=== PATIENT | male | born 2005 | race Caucasian/White ===

== ENCOUNTER 2025-08-20 20:49 | Emergency (ER) | payer BC, SELFPAY ==
[2025-08-20 20:54] VITALS: BP 140/89; PULSE 82; RESP 18; TEMP 36.9; O2SAT 100
--- NOTE | 2025-08-21 01:00 | ED.WOUNDLAC ---
HPI - Wound/Laceration General Chief Complaint: Wound/Laceration Stated Complaint: left thumb lac Time Seen by Provider: 08/21/25 00:06 Source: patient Mode of arrival: ambulatory Limitations: no limitations History of Present Illness HPI narrative: This is a 20 year old male that presents to the ER for laceration to left thumb. Reports accidentally cut it with a knife. Reports bleeding and pain to the area. Related Data Home Medications ?Medication ?Instructions ?Recorded ?Confirmed ?Last Taken ?Type fexofenadine 180 mg tablet 180 mg PO DAILY 11/10/23 11/10/23 Unknown History (Johanne Allergy) fluticasone propionate 50 1 spray intranasal BID 11/10/23 11/10/23 Unknown History mcg/actuation nasal spray,suspension (Flonase Allergy Relief) Allergies Allergy/AdvReac Type Severity Reaction Status Date / Time No Known Allergies Allergy Verified 08/20/25 20:54 Review of Systems Review of Systems: All systems reviewed & are unremarkable except as noted in HPI and below PMFSH Past Medical History Medical History Seasonal allergies Family History Family History Mother Asthma Thyroid disorder Social History Social History Social History: Single Smoking status: Never smoker Second hand tobacco smoke exposure: No Alcohol intake: never Substance use: never Substance use type: does not use Do You Feel Safe in your Home?: Yes Lack of Transportation: No Lack of Food: Never True Current Housing: I Have Housing Concerned About Future Housing: No Difficulty Paying Gas/Electric Bills: No Difficulty Paying for Meds: No Currently Unemployed: No Education: Don't Know Difficulty w/ Childcare or Family Care: No Living arrangements: with family Occupation/Education: student Additional occupation/education comments: Homeschooled Gender identity (if verbalized by the patient): Male Sexual Orientation (if Verbalized by the Patient): Straight or Heterosexual Exam Narrative: GENERAL: Well-appearing, well-nourished, and in no acute distress. HEAD: Normocephalic, atraumatic. EYES: EOMI. EXTREMITIES: Normal range of motion. No edema. Left thumb with flap laceration to the tip of the finger SKIN: Warm, dry, no rash. NEURO: No focal deficits. Alert and oriented x3. PSYCH: Normal mood and affect Course Vital Signs Vital signs: Vital Signs Temperature 98.4 F 08/20/25 20:54 Pulse Rate 82 08/20/25 20:54 Respiratory Rate 18 08/20/25 20:54 Blood Pressure 140/89 08/20/25 20:54 Pulse Oximetry 100 08/20/25 20:54 Oxygen Delivery Room Air 08/20/25 20:54 Temperature 98.4 F 08/20/25 20:54 Pulse Rate 82 08/20/25 20:54 Respiratory Rate 18 08/20/25 20:54 Blood Pressure 140/89 08/20/25 20:54 Pulse Oximetry 100 08/20/25 20:54 Oxygen Delivery Room Air 08/20/25 20:54 Procedures Laceration Laceration 1: Date: 08/21/25 Time: 02:05 Site: hand Side (If applicable): left Size (cm): 1.5 Description: flap Depth: simple, single layer Local Anesthetic: lidocaine 1% Amount of anesthesia used (mL): 2 Pre-repair: wound explored and irrigated ====== Skin Level ====== Skin layer closed with: nylon Size (cm): 4-0 Number of sutures: 2 Technique: simple, interrupted ====== Subcutaneous Layer ====== ====== Muscle Layer ====== ====== Tendon Layer ====== MDM - Wound/Laceration MDM Narrative Medical decision making narrative: Patient presents the emergency department for laceration to the left thumb. Wound was irrigated and closed with sutures. Patient updated tetanus vaccination. Educated on further wound care. He is to follow up primary provider. He was given warnings to return to the ER Differential Diagnosis Differential diagnosis: Likely laceration, abrasion and avulsion of skin Critical Care Time Critical Care Time Critical Care Time: No Discharge Plan Discharge Clinical Impression: Laceration Patient Disposition: Home Condition: Stable Instructions: Care For Your Stitches (ED), Laceration (ED) Additional Instructions: Return to the emergency department if you experience fever, redness or swelling of your wound, abnormal drainage from your wound, or any other symptoms that are concerning to you. Apply antibiotic ointment daily. Do not soak the wound. Clean with mild soap and water daily Follow-up with your primary care doctor for suture removal in 10-14 days. Patient Language: South [place]ese Prescriptions: No Action fexofenadine [Johanne Allergy] 180 mg tablet 180 mg PO DAILY fluticasone propionate [Flonase Allergy Relief] 50 mcg/actuation spray,suspension 1 spray intranasal BID Rx Instructions: administer into each nostril azelastine 137 mcg (0.1 %) aerosol,spray 137 mcg intranasal Q12H Qty: 30 3RF Rx Instructions: administer into each nostril Follow-up/Referrals: Ge Veloz MD [Primary Care Provider, Family Practice]
[2025-08-21] MEDS: IBUPROFEN 600 MG TABLET PO (02:15)
[2025-08-21] MEDS: CELLULOSE OXIDIZED 2 x 14 INCH 1 PKT XX (02:15)
[2025-08-21] MEDS: TETANUS,DIPHTHERIA,AC PERTUSSIS ADULT (0.5 ML) BOOSTRIX IM (02:16)
[2025-08-21] MEDS: LIDOCAINE 1% LOCAL INJ 10 ML VIAL INFILTRATE (02:16)
== END 2025-08-21 02:20 | disposition home or self-care (01) ==
PROVIDERS: Emergency Provider Physician Assistant; PCP Family Medicine
DX: S61.012A Laceration without foreign body of left thumb without damage to nail, initial encounter (principal); Z23 Encounter for immunization; W26.0XXA Contact with knife, initial encounter
CPT/HCPCS: 12001; 90471; 90715; 99282; A9270; J2003

== ENCOUNTER 2025-09-24 10:41 | Outpatient (CLI) | payer BC, SELFPAY ==
--- OUTSIDE RECORDS SUMMARY | 2024-10-10 12:30 | XMS_ITS ---
Author Organization [facility] [place] ([address]) Address [address] [place] [address] Care Team Providers Care Solar Tech Name Role Phone Dr. Lian Larson Primary Care Provider Un available Hazel Camejo Unavailable [phone] REASON FOR VISIT ARC follow-up Encounters Encounter Location Date Provider Diagnosis [facility] [address] [place] [address] 10/10/2024 Hazel Camejo Plan Of Treatment No Information Progress Notes * Raghu BETANCOUTRDOB:2004 (20 yo M)Acc No.[id number]:10/10/2024 Progress Notes Patient: Raghu CAMARILLO Provider: NATHALIE Quintana :2005 A ge:19 Y S ex:Male Date:10/10/2024 Address:[address] [place], [place] [phone] Pcp:Dr. Lian Larson Subjective: * Chief Complaints: * 1 . ARC follow-up. * Medical History: Objective: * Vitals: Assessment: Plan: * Treatment: * Billing Information: * Visit Code: * Procedure Codes: * Electronic signature of NATHALIE Hernandez on 09/24/2025 at 12:23 PM CDT Sign off status: Pending * Provider: NATHALIE Quintana Date: 12/10/2023 Generated for Jasen cunningham/Wilder/Sohail on: 1 12:23 PM CDT
[2025-09-24 12:19] LABS: Hematocrit 39.2 % (42.0-52.0); Hemoglobin 13.0 g/dL (14.0-18.0); Immature Granulocyte Percent A 0.8 % (0-0.5); Lymphocytes Absolute Auto 0.77 K/mm3 (0.9-3.2); Mean Corpuscular HGB Conc 33.2 g/dl (32-36); Mean Corpuscular Hemoglobin 28.3 pg (26-34); Mean Corpuscular Volume 85.4 fl (80-100); Nucleated Red Blood Cells Absolute Auto 0.000 K/mm3 (0.0-0.012); Nucleated Red Blood Cells Perc 0.0 % (0.0-0.2); Platelet Count Result 296 k/mm3 (150-375); Red Blood Count 4.59 M/mm3 (4.6-6.20); White Blood Count 4.0 K/mm3 (4.5-10.0)
--- OUTSIDE RECORDS SUMMARY | 2025-09-24 12:24 | XMS_ITS | Clinical Summary ---
Author Organization [facility] Care Team Providers Care Retail Consultant Name Role Phone Unavailable Primary Care Provider Unavailabl e Social History Tobacco Use Types Packs/Day Years Used Date Smoking Tobacco: Never Assessed Sex and Gender Information Value Date Recorded Sex Assigned at Not on file Legal Sex Male 11:22 AM RADIO INTERFERENCE EXPERT Gender Identity Not on file Sexual Orientation Not on file Plan of Treatment Health Maintenance Due Date Last Done Comments Hepatitis C Virus (HCV) Screening 2003 TdaP Immunization 2003 Human Papillomavirus (HPV) Immunization (1 - Male 3-dose series) 2018 Meningococcal B Immunization (1 of 2 - Standard) 2019 Hepatitis B Immunization (1 of 3 - 19+ 3-dose series) 2022 Influenza Immunization (#1) 2025 SARS-COV-2 Immunization ( - season) 2025 Respiratory Syncytial Virus (RSV) Immunization (Adult) (1 - 1-dose 75+ series) 2078 Meningococcal Immunization (ACWY) Aged Out No longer eligible based on patient's age to complete this topic Pneumococcal Immunization Combined Aged Out No longer eligible based on patient's age to complete this topic Rotavirus Immunization Aged Out No lo nger eligible based on patient's age to complete this topic
--- OUTSIDE RECORDS SUMMARY | 2025-09-24 12:24 | XMS_ITS | Patient Health Record ---
Author Organization [facility] [facility] [place] ([address]) Address [address] [place] [address] Care Team Providers Care Commercial Sales Manager Name Role Phone Dr. Lian Larson Primary Care Provider Un available Hazel Camejo Unavailable [phone] Allergies No Known Allergies Reason For Referral No Information Medications Medication SIG (Take, Route, Frequency, Duration) Notes Start Date End Date Status FEXOFENADINE 180 mg 1 tab(s) orally once a day Active ASTEPRO ALLERGY 205.5 MCG/INH 2 SPRAY(S) INTRANASALLY 2 TIMES A DAY *Please review for potential replacement for e-prescription and drug interaction check* Active EPIPEN 2-COLLINS 0.3 mg as directed intramuscularly once; Duration: 30 days Active FLONASE ALLERGY RELIEF 50 mcg/inh 1 spray(s) in each nostril once a day Active NASAL WASHES N/A DIRECTED INTRANASALLY NEEDED; Duration: 30 DAYS *Please review for potential replacement for e-prescription and drug interaction check* Active SIT (TRADITIONAL) VARIABLE PER SCHEDULE SUBCUTANEOUS PER SCHEDULE; Duration: 999 DAYS *Please review for potential replacement for e-prescription and drug interaction check* 04/11/2024 Active Flonase Allergy Relief 50 MCG/ACT 1 spray(s) in each nostril once a day Active Fexofenadine HCl 180 MG 1 tab(s) orally once a day Active EPIPEN 2-COLLINS 0.3 mg as directed intramuscularly once; Duration: 30 days Active EpiPen 2-Collins 0.3 mg as directed intramuscularly once; Duration: 30 days Active Social History Tobacco Use: Social History Observation Description Date Details (start date - stop date) Never Smoker NA - NA Smoking Smart Form: Question Answer Notes Are you a: never smoker Tobacco Control (Standard) Question Answer Notes Tobacco use: Nonsmoker Problems Problem Type SNOMED Code ICD Code Onset Dates Problem Status W/U Status Risk Notes Problem Chronic allergic conjunctivitis (19384150) Other chronic allergic conjunctivitis (H10.45) Active confirmed Problem Allergic rhinitis caused by pollen (disorder) (99202994) Allergic rhinitis due to pollen (J30.1) Active confirmed Problem Allergic rhinitis caused by animal hair and dander (357217766048063) Allergic rhinitis due to animal (cat) (dog) hair and dander (J30.81) Active confirmed Problem Allergic rhinitis (35726682) Other allergic rhinitis (J30.89) Active confirmed Problem Chronic rhinitis (42120639) Chronic rhinitis (J31.0) Active confirmed Problem Hypertrophy of nasal turbinates (62761130) Hypertrophy of nasal turbinates (J34.3) Active confirmed Plan Of Treatment No Information Insurance Providers Payer Name Payer Address Payer Phone Subscriber Number Group Number Insured Name Patient Relationship to Insured Coverage Start Date Coverage End Date [facility] [address] [place] [address] [id number] Karin Nguyen Child - Insured has Financial Responsibility 5 Medical (General) History Medical History History ICD Code Allergic rhinitis Surgical History Surgery Date(Month/Year) tubes in ears unknown
[2025-09-24 12:30] LABS: Alanine Aminotransferase 33 U/L (6-50); Albumin Level 5.3 g/dL (3.5-5.1); Alkaline Phosphatase 81 U/L (38-126); Anion Gap 12 mmol/L (4-12); Aspartate Amino Transferase 35 U/L (17-59); Bilirubin,Total 3.2 mg/dL (0.2-1.3); Blood Urea Nitrogen 15 mg/dL (9-20); Calcium 9.6 mg/dL (8.4-10.2); Carbon Dioxide 25 mmol/L (22-30); Chloride 101 mmol/L (98-107); Cholesterol 186 mg/dL (0-200); Estimated Glomerular Filt Rate > 60; Glucose 79 mg/dL (65-110); HDL Direct 34 mg/dL; Potassium 3.6 mmol/L (3.4-5.0); Sodium 138 mmol/L (137-145); Total Protein 8.8 g/dL (6.3-8.2); Triglycerides 155 mg/dL (<150)
== END 2025-09-24 10:42 | disposition home or self-care (01) ==
LOC: ANHLAB 10:43
PROVIDERS: PCP Family Medicine; Visit Provider Student in an Organized Health Care Education/Training Program
DX: Z83.438 Family history of other disorder of lipoprotein metabolism and other lipidemia (principal)
CPT/HCPCS: 36415; 80053; 80061; 85025

== ENCOUNTER 2025-10-08 11:44 | Outpatient (CLI) | payer BC, SELFPAY ==
--- OUTSIDE RECORDS SUMMARY | 2024-10-10 11:30 | XMS_ITS ---
Author Organization [facility] [place] ([address]) Address [address] [place] [address] Care Team Providers Care Steam Setter Name Role Phone Dr. Lian Larson Primary Care Provider Un available Hazel Camejo Unavailable [phone] REASON FOR VISIT ARC follow-up Encounters Encounter Location Date Provider Diagnosis [facility] [address] [place] [address] 10/10/2024 Hazel Camejo Plan Of Treatment No Information Progress Notes * Raghu BETANCOURTDOB:2004 (20 yo M)Acc No.[id number]:10/10/2024 Progress Notes Patient: Raghu CAMARILLO Provider: NATHALIE Quintana :2005 A ge:19 Y S ex:Male Date:10/10/2024 Address:[address] [place], [place] [phone] Pcp:Dr. Lian Larson Subjective: * Chief Complaints: * 1 . ARC follow-up. * Medical History: Objective: * Vitals: Assessment: Plan: * Treatment: * Billing Information: * Visit Code: * Procedure Codes: * Electronic signature of NATHALIE Hernandez on 10/08/2025 at 12:15 PM BASKETBALL COACH Sign off status: Pending * Provider: NATHALIE Quintana Date: 12/10/2023 Generated for Jasen Gonzalesg/Sohail on: 1 12/08/2024 12:15 PM BASKETBALL COACH
--- NOTE | 2025-10-08 11:51 | CONSULT_PTH ---
PATIENT: Raghu Gil LOC: [facility] U#:[id number] AGE/SX: 20/M ROOM: RE10/08/[address]: Estela Adrian PA-C : 2005 BED: DIS: 10/08/2025 SPEC #: [id number] RECD: 10/08/25 15:03 STATUS: HILARY REQ #: [id number] BRANDIN: 10/08/25 11:[address]: Estela Adrian DEPT: [facility] Consult RECD BY: Sachin Archer MLT, ([facility]) ENTERED: 10/08/25 15:04 SP TYPE: Consult OTHR DR: Ge Veloz MD Tissues: A - Peripheral Smear Procedures: Hematology Consult
[2025-10-08 12:06] LABS: Hematocrit 28.8 % (42.0-52.0); Hemoglobin 9.3 g/dL (14.0-18.0); Immature Granulocyte Percent A 1.2 % (0-0.5); Immature Reticulocyte Fraction 35.4 % (3.0-15.9); Lymphocytes Absolute Auto 0.47 K/mm3 (0.9-3.2); Mean Corpuscular HGB Conc 32.3 g/dl (32-36); Mean Corpuscular Hemoglobin 31.5 pg (26-34); Mean Corpuscular Volume 97.6 fl (80-100); Nucleated Red Blood Cells Absolute Auto 0.000 K/mm3 (0.0-0.012); Nucleated Red Blood Cells Perc 0.0 % (0.0-0.2); Platelet Count Result 273 k/mm3 (150-375); Red Blood Count 2.95 M/mm3 (4.6-6.20); Reticulocyte Hemoglobin Conten 31.9 pg (28.2-36.6); Reticulocytes Absolute 0.37 10^6/uL (0.02-0.10); White Blood Count 3.4 K/mm3 (4.5-10.0)
--- OUTSIDE RECORDS SUMMARY | 2025-10-08 12:16 | XMS_ITS | Patient Health Record ---
Author Organization [facility] [place] ([address]) Address [address] [place] [address] Care Team Providers Care Assessment Specialist Name Role Phone Dr. Lian Larson Primary Care Provider Un available Hazel Camejo Unavailable [phone] Allergies No Known Allergies Reason For Referral [...] Status Risk Notes Problem Chronic allergic conjunctivitis (95736754) Other chronic allergic conjunctivitis (H10.45) Active confirmed Problem Allergic rhinitis caused by pollen (disorder) (38325706) Allergic rhinitis due to pollen (J30.1) Active confirmed Problem Allergic rhinitis caused by animal hair and dander (562672332399393) Allergic rhinitis due to animal (cat) (dog) hair and dander (J30.81) Active confirmed Problem Allergic rhinitis (84007599) Other allergic rhinitis (J30.89) Active confirmed Problem Chronic rhinitis (24014430) Chronic rhinitis (J31.0) Active confirmed Problem Hypertrophy of nasal turbinates (68740335) Hypertrophy of nasal turbinates (J34.3) Active confirmed Plan Of Treatment No Information Insurance Providers Payer Name Payer Address Payer Phone Subscriber Number Group Number Insured Name Patient Relationship to Insured Coverage Start Date Coverage End Date [facility] [address] [place] [address] [id number] Karin Nguyen Child - Insured has Financial Responsibility 5 Medical (General) History Medical History History ICD Code Allergic rhinitis Surgical History Surgery Date(Month/Year) tubes in ears unknown
--- OUTSIDE RECORDS SUMMARY | 2025-10-08 12:16 | XMS_ITS | Clinical Summary ---
Author Organization [facility] Care Team Providers Care Front Attendant Name Role Phone Unavailable Primary Care Provider Unavailabl e Social History Tobacco Use Types Packs/Day Years Used Date Smoking Tobacco: Never Assessed Sex and Gender Information Value Date Recorded Sex Assigned at Not on file Legal Sex Male 11:22 AM SALES ADVISORY MANAGER Gender Identity Not on file Sexual Orientation [...]
[2025-10-08 12:26] LABS: Alanine Aminotransferase 27 U/L (6-50); Albumin Level 4.8 g/dL (3.5-5.1); Alkaline Phosphatase 61 U/L (38-126); Anion Gap 9 mmol/L (4-12); Aspartate Amino Transferase 36 U/L (17-59); Bilirubin,Total 2.4 mg/dL (0.2-1.3); Blood Urea Nitrogen 13 mg/dL (9-20); Calcium 9.3 mg/dL (8.4-10.2); Carbon Dioxide 25 mmol/L (22-30); Chloride 104 mmol/L (98-107); Estimated Glomerular Filt Rate > 60; Glucose 89 mg/dL (65-110); Potassium 4.0 mmol/L (3.4-5.0); Sodium 138 mmol/L (137-145); Total Protein 8.1 g/dL (6.3-8.2)
[2025-10-08 12:27] LABS: Iron 116 ug/dL (49-181)
[2025-10-08 12:42] LABS: Percent Iron Saturation 33 % (20-50)
[2025-10-08 13:02] LABS: Thyroid Stimulating Hormone 1.910 uIU/mL (0.465-4.680)
[2025-10-08 13:38] LABS: Vitamin B12 286.0 pg/mL (239-931)
[2025-10-08 14:32] LABS: Ferritin 433.00 ng/mL (17.9-464)
== END 2025-10-08 11:45 | disposition home or self-care (01) ==
PROVIDERS: PCP Family Medicine; Visit Provider Student in an Organized Health Care Education/Training Program
DX: D58.9 Hereditary hemolytic anemia, unspecified (principal); E80.6 Other disorders of bilirubin metabolism; E03.9 Hypothyroidism, unspecified; D64.9 Anemia, unspecified
CPT/HCPCS: 36415; 80053; 82248; 82607; 82728; 82746; 83010; 83540; 83550; 83615; 84443; 85025; 85046; 86850; 86860; 86870; 86880; 86900; 86901; 86902; 86971; 86978

== ENCOUNTER 2025-10-10 01:58 | Emergency (ER) | payer BC, SELFPAY ==
--- OUTSIDE RECORDS SUMMARY | 2024-10-10 11:30 | XMS_ITS ---
Author Organization [facility] [place] ([address]) Address [address] [place] [address] Care Team Providers Care Director Of In Service Education Name Role Phone Dr. Lian Larson Primary Care Provider Un available Hazel Camejo Unavailable [phone] REASON FOR VISIT ARC follow-up Encounters Encounter Location Date Provider Diagnosis [facility] [address] [place] [address] 10/10/2024 Hazel Camejo Plan Of Treatment No Information Progress Notes * Raghu BETANCOURTDOB:2004 (20 yo M)Acc No.[id number]:10/10/2024 Progress Notes Patient: Raghu CAMARILLO Provider: NATHALIE Quintana :2005 A ge:19 Y S ex:Male Date:10/10/2024 Address:[address] [place], [place] [phone] Pcp:Dr. Lian Larson Subjective: * Chief Complaints: * 1 . ARC follow-up. * Medical History: Objective: * Vitals: Assessment: Plan: * Treatment: * Billing Information: * Visit Code: * Procedure Codes: * Electronic signature of NATHALIE Hernandez on 10/10/2025 at 02:00 AM GASKET NOTCHER Sign off status: Pending * Provider: NATHALIE Quintana Date: 12/10/2023 Generated for Jasen Gonzalesg/Doyleitting on: 1 12/10/2024 02:00 AM GASKET NOTCHER
--- NOTE | ~2025-10-10 | XR_ITS ---
Examination: XR chest 2V Clinical History: cp Comparison: None Technique: PA and Lateral Findings: Cardiomediastinal silhouette normal size and configuration. Lungs clear. No acute bony abnormality. IMPRESSION: 1. No acute cardiopulmonary findings. Reviewed, dictated and finalized at location R. IOPULMONARY TECHNOLOGIST CHIEF
--- OUTSIDE RECORDS SUMMARY | 2025-10-10 02:01 | XMS_ITS | Patient Health Record ---
Author Organization [employer] [facility] [place] ([address]) Address [address] [place] [address] Care Team Providers Care Software Engineer Developer Name Role Phone Dr. Lian Larson Primary Care Provider Un available Hazel Camejo Unavailable [phone] Allergies No Known Allergies Reason For Referral [...] Status Risk Notes Problem Chronic allergic conjunctivitis (82299744) Other chronic allergic conjunctivitis (H10.45) Active confirmed Problem Allergic rhinitis caused by pollen (disorder) (27697322) Allergic rhinitis due to pollen (J30.1) Active confirmed Problem Allergic rhinitis caused by animal hair and dander (467958098960797) Allergic rhinitis due to animal (cat) (dog) hair and dander (J30.81) Active confirmed Problem Allergic rhinitis (09894781) Other allergic rhinitis (J30.89) Active confirmed Problem Chronic rhinitis (87076004) Chronic rhinitis (J31.0) Active confirmed Problem Hypertrophy of nasal turbinates (17501382) Hypertrophy of nasal turbinates (J34.3) Active confirmed Plan Of Treatment No Information Insurance Providers Payer Name Payer Address Payer Phone Subscriber Number Group Number Insured Name Patient Relationship to Insured Coverage Start Date Coverage End Date [facility] [address] [place] [address] [id number] Karin Nguyen Child - Insured has Financial Responsibility 5 Medical (General) History Medical History History ICD Code Allergic rhinitis Surgical History Surgery Date(Month/Year) tubes in ears unknown
--- OUTSIDE RECORDS SUMMARY | 2025-10-10 02:01 | XMS_ITS | Clinical Summary ---
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
[2025-10-10 02:03] VITALS: BP 200/86; PULSE 111; RESP 18; TEMP 37.3; O2SAT 100
--- NOTE | 2025-10-10 02:03 | ECG_ITS ---
Test Date: 2025-10-10 02:07:24 Measurements Intervals [place] Rate: 111 P: 122 PA: 158 QRS: 136 QRSD: 99 T: 173 QT: 330 QTc: 449 Interpretive Statements ECTOPIC ATRIAL TACHYCARDIA RIGHT AXIS DEVIATION [QRS AXIS > 100] NONSPECIFIC ST-T CHANGES No previous ECG available for comparison Electronically Signed On 10-10-2025 12:27:27 NETWORK SERVICES PROJECT MANAGER by Denver Vega M.D.
[2025-10-10 02:13] LABS: Hematocrit 28.1 % (42.0-52.0); Hemoglobin 9.0 g/dL (14.0-18.0); Immature Granulocyte Percent A 1.0 % (0-0.5); Lymphocytes Absolute Auto 0.88 K/mm3 (0.9-3.2); Mean Corpuscular HGB Conc 32.0 g/dl (32-36); Mean Corpuscular Hemoglobin 31.5 pg (26-34); Mean Corpuscular Volume 98.3 fl (80-100); Nucleated Red Blood Cells Absolute Auto 0.020 K/mm3 (0.0-0.012); Nucleated Red Blood Cells Perc 0.4 % (0.0-0.2); Platelet Count Result 297 k/mm3 (150-375); Red Blood Count 2.86 M/mm3 (4.6-6.20); White Blood Count 4.8 K/mm3 (4.5-10.0)
[2025-10-10 02:14] VITALS: RESP 16
[2025-10-10 02:15] VITALS: BP 163/81; PULSE 112; RESP 16; O2SAT 99
[2025-10-10 02:22] LABS: Alanine Aminotransferase 26 U/L (6-50); Albumin Level 5.0 g/dL (3.5-5.1); Alkaline Phosphatase 83 U/L (38-126); Anion Gap 11 mmol/L (4-12); Aspartate Amino Transferase 34 U/L (17-59); Bilirubin,Total 2.3 mg/dL (0.2-1.3); Blood Urea Nitrogen 21 mg/dL (9-20); Calcium 9.5 mg/dL (8.4-10.2); Carbon Dioxide 24 mmol/L (22-30); Chloride 102 mmol/L (98-107); Estimated CRCL calculation 47 ml/min; Estimated Glomerular Filt Rate 45; Glucose 105 mg/dL (65-110); Lipase 99 U/L (23-300); Potassium 4.0 mmol/L (3.4-5.0); Sodium 137 mmol/L (137-145); Total Protein 8.3 g/dL (6.3-8.2)
[2025-10-10 02:23] LABS: INR 1.2; Prothrombin Time 15.0 Seconds (11.1-14.7)
[2025-10-10 02:24] LABS: Partial Thromboplastin Time 32.9 Seconds (22.3-36.8)
[2025-10-10 02:34] LABS: Troponin I 0.018 ng/mL (0.000-0.034)
--- OUTSIDE RECORDS SUMMARY | 2025-10-10 03:09 | XMS_ITS | Clinical Summary ---
Author Organization [facility] Care Team Providers Care Apparel Sales Associate Name Role Phone Unavailable Primary Care Provider Unavailabl e Social History Tobacco Use Types Packs/Day Years Used Date Smoking Tobacco: Never Assessed Sex and Gender Information Value Date Recorded Sex Assigned at Not on file Legal Sex Male 11:22 AM SKIP PITMAN Gender Identity Not on file Sexual Orientation [...]
--- NOTE | 2025-10-10 03:15 | ED_ITS ---
HPI - Recheck/Abnormal Lab/Rx General Chief Complaint: Recheck/Abnormal Lab/Rx Stated Complaint: low hgb, elevated heart rate. Time Seen by Provider: 10/10/25 03:01 Source: patient and family (Mother) Mode of arrival: ambulatory Limitations: no limitations History of Present Illness HPI narrative: Patient presents report feeling like his heart was racing tonight while at rest. He felt he could feel his heart beating strongly. He noted that the rate seemed fluctuate between 60 and 80, occasionally 90, at home. This has never happened before. No chest pain. He drinks approximately 1 cup of tea he daily but denies other sources of caffeine and denies recreational drugs. Is currently being worked up for combination some elevated blood pressure readings and, in doing so, new onset anemia. Patient had been noted to have some elevated blood pressure readings at annual appointment. Previously saw primary care physician Dr. Veloz who is currently out so saw Dr Beal and JAYLIN Palmer. no official diagnosis of hypertension as there was question of whether this was white coat hypertension. Patient had been advised to keep a log of his blood pressure measurements at home and notes that in general his systolic blood pressures ranged between 125-145, occasionally 150. Average 135/85. As part of patient's annual exam he had labs obtained which notably showed an initial hemoglobin 13 but when labs had been repeated hemoglobin was 9.3 yesterday. Patient currently in the process of getting further testing done, multiple lab draws including testing with the [facility] and assessment of antibodies. Denies craving ice. Patient that he became short of breath lab draws does at baseline. Has quite fatigued though. He denies any obvious source of blood loss: Trauma, hematochezia, melena, hematuria, hemoptysis, hematemesis. He is not on anticoagulation. Two months ago he injured his finger and was using some NSAIDs p.r.n. consistently since. Denies abdominal pain. No family history colon cancer. He does not follow regularly with a roller die cutting machine operator and has not a colonoscopy. He has an appointment to see a visual merchandising director the first week of October. Related Data Home Medications ?Medication ?Instructions ?Recorded ?Confirmed ?Last Taken ?Type No Home Medications 09/23/25 10/10/25 U nknown History Allergies Allergy/AdvReac Type Severity Reaction Status Date / Time No Known Allergies Allergy Verified 10/10/25 02:07 [facility] Past Medical History Medical History Seasonal allergies Family History Family History Mother Asthma Thyroid disorder Social History Social History Social History: Single Drinks 1 cup tea in the morning, no other caffeine regularly Smoking status: Never smoker Second hand tobacco smoke exposure: No Alcohol intake: never Substance use: never Substance use type: does not use Do You Feel Safe in your Home?: Yes Lack of Transportation: No Lack of Food: Never True Current Housing: I Have Housing Concerned About Future Housing: No Difficulty Paying Gas/Electric Bills: No Difficulty Paying for Meds: No Currently Unemployed: No Education: Don't Know Difficulty w/ Childcare or Family Care: No Living arrangements: with family Occupation/Education: student Additional occupation/education comments: Homeschooled Gender identity (if verbalized by the patient): Male Sexual Orientation (if Verbalized by the Patient): Straight or Heterosexual Exam 2 Narrative: GENERAL: Well-appearing, well-nourished, and in no acute distress. HEAD: Normocephalic, atraumatic. EYES: Non injected, non icteric ENT: Nares clear, no rhinorrhea or epistaxis. Gross auditory acuity intact. NECK: Supple. No meningismus. CHEST: Speaking in full sentences. No respiratory distress. HEART: Tachycardic rate and rhythm. . ABDOMEN: Soft, nondistended. No rigidity or guarding. Not peritoneal EXTREMITIES: Normal range of motion. No lower extremity edema. RO: No external hemorrhoids or masses. Normal rectal tone. Normal colored stool on gloved lubricated finger. No internal masses. FOBT/guiaic negative. SKIN: Warm, dry, no rash. NEURO: No focal deficits. Alert and oriented. Answering questions. Following commands. Normal speech without aphasia or dysarthria. PSYCH: Normal mood and affect. Course Vital Signs Vital signs: Vital Signs Temperature 99.1 F 10/10/25 02:03 Pulse Rate 111 H 10/10/25 02:03 Respiratory Rate 18 10/10/25 02:03 Blood Pressure 200/86 H 10/10/25 02:03 Pulse Oximetry 100 10/10/25 02:03 Oxygen Delivery Room Air 10/10/25 02:03 Temperature 99.1 F 10/10/25 02:03 Pulse Rate 102 H 10/10/25 06:38 Respiratory Rate 16 10/10/25 06:38 Blood Pressure 132/62 10/10/25 06:38 Pulse Oximetry 100 10/10/25 06:38 Oxygen Delivery Room Air 10/10/25 02:15 MDM - Recheck/Abnormal Lab/Rx MDM Narrative Medical decision making narrative: Patient presents with report feeling like his heart was racing this evening at rest. This has never happened before. Patient currently being asked to keep a log of his blood pressure readings at home due to some elevated measurements in the office while at annual appointment. Part of this work up over the past week or so has revealed a drop in Hgb. No obvious source. In the emergency department he is afebrile with vital signs notable for tachycardia and hypertension. He has a normocytic anemia, drop 4 g from last month a drop of 0.3 most recent labs. Initial troponin within limits though mid range. His total bilirubin is elevated and he has an acute kidney injury. 1L IVF. Patient amenable to undergoing digital rectal exam which is FOBT/guaiac negative. Will defer CT imaging at this time; shared decision making with the patient for this. Ddx indirect hyperbilirubinemia Over production of bilirubin (hemolytic anemia), reduced uptake (cirrhosis or congestive hepatopathy), impaired conjugation, biliary obstruction, hereditary disease (Gilbert syndrome, Bony-Junior syndrome, Crigler-Francisco syndrome), medication side effect (allopurinol, anabolic steroids, antibiotics, antimalarials, etc.) D-dimer normal. Elevated TSH. T4 and T3 ordered; result as normal; subclinical hypothyroidism. UDS negative. Orthostatic VS are reviewed and acceptable (HR 78 -> 79 -> 83; BP 131/63 -> 137/74 -> 143/81mmHg). Repeat troponin within normal limits. Otherwise stable for discharge and advised to keep all follow up appointments regarding continued monitoring of BP, hematological work up, and , as needed cardiology (referral given) if heart racing persists as he may benefit from a holter/event monitor and/or other work up. Differential Diagnosis Differential diagnosis: Likely other (Palpitation ;arrhythmia, Ltaqj-Qdadsakmw-Cpuvx ;symptomatic anemia, SVT; spectrum of anemia (production/storage/destruction)) Lab Data Attestation: I reviewed the patient's lab results. 10/10/25 02:08 10/10/25 02:08 Labs: Lab Results 10/10/25 10/10/25 10/10/25 Range/Units 02:08 04:01 04:56 WBC 4.8 (4.5-10.0) K/mm3 RBC 2.86 L (4.6-6.20) M/mm3 Hgb 9.0 L (14.0-18.0) g/dL Hct 28.1 L (42.0-52.0) % MCV 98.3 (80-100) fl MCH 31.5 (26-34) pg MCHC 32.0 (32-36) g/dl RDW 21.6 H (11.5-14.5) % Plt Count 297 (150-375) k/mm3 MPV 8.3 (7.4-10.4) fl Immature Gran % (Auto) 1.0 H (0-0.5) % Neut % (Auto) 73.1 (45.5-73.1) % Lymph % (Auto) 18.2 L (18.3-44.2) % Reagan % (Auto) 5.4 (2.6-8.5) % Eos % (Auto) 1.9 (0-4.4) % Baso % (Auto) 0.4 (0.2-1.2) % Lymph # (Auto) 0.88 L (0.9-3.2) K/mm3 Reagan # (Auto) 0.3 (0.1-0.6) K/mm3 Eos # (Auto) 0.1 (0-0.3) K/mm3 Baso # (Auto) 0.0 (0.0-0.1) K/mm3 Abs Immat Gran (auto) 0.05 H (0.00-0.031) K/mm3 Absolute Neuts (auto) 3.5 (1.3-6.7) K/mm3 Absolute Nucleated RBC 0.020 H (0.0-0.012) K/mm3 Nucleated RBC % 0.4 H (0.0-0.2) % PT 15.0 H (11.1-14.7) Seconds INR 1.2 APTT 32.9 (22.3-36.8) Seconds D-Dimer 0.40 (<0.48) ug/mL Sodium 137 (137-145) mmol/L Potassium 4.0 (3.4-5.0) mmol/L Chloride 102 (98-107) mmol/L Carbon Dioxide 24 (22-30) mmol/L Anion Gap 11 (4-12) mmol/L BUN 21 H (9-20) mg/dL Creatinine 1.89 H (0.7-1.3) mg/dL Estim Creat Clear Calc 47 ml/min Estimated GFR 45 L (59 - ) Glucose 105 (65-110) mg/dL Calcium 9.5 (8.4-10.2) mg/dL Total Bilirubin 2.3 H (0.2-1.3) mg/dL Direct Bilirubin 0.0 (0-0.3) mg/dL Indirect Bilirubin 2.0 H (0-1.1) mg/dL AST 34 (17-59) U/L ALT 26 (6-50) U/L Alkaline Phosphatase 83 (38-126) U/L Troponin I 0.018 0.016 (0.000-0.034) ng/mL Total Protein 8.3 H (6.3-8.2) g/dL Albumin 5.0 (3.5-5.1) g/dL Lipase 99 (23-300) U/L TSH 7.610 H (0.465-4.680) uIU/mL Free T4 1.21 (0.78-2.19) ng/dL Free T3 pg/mL 4.10 (2.32-6.09) pg/mL Urine Opiates Screen Negative (Negative) Urine Methadone Screen Negative (Negative) Ur Barbiturates Screen Negative (Negative) Ur Phencyclidine Scrn Negative (Negative) Ur Amphetamine Screen Negative (Negative) U Benzodiazepines Scrn Negative (Negative) Urine Cocaine Screen Negative (Negative) U Cannabinoids Screen Negative (Negative) 10/10/25 Range/Units 04:56 WBC (4.5-10.0) K/mm3 RBC (4.6-6.20) M/mm3 Hgb (14.0-18.0) g/dL Hct (42.0-52.0) % MCV (80-100) fl MCH (26-34) pg MCHC (32-36) g/dl RDW (11.5-14.5) % Plt Count (150-375) k/mm3 MPV (7.4-10.4) fl Immature Gran % (Auto) (0-0.5) % Neut % (Auto) (45.5-73.1) % Lymph % (Auto) (18.3-44.2) % Reagan % (Auto) (2.6-8.5) % Eos % (Auto) (0-4.4) % Baso % (Auto) (0.2-1.2) % Lymph # (Auto) (0.9-3.2) K/mm3 Reagan # (Auto) (0.1-0.6) K/mm3 Eos # (Auto) (0-0.3) K/mm3 Baso # (Auto) (0.0-0.1) K/mm3 Abs Immat Gran (auto) (0.00-0.031) K/mm3 Absolute Neuts (auto) (1.3-6.7) K/mm3 Absolute Nucleated RBC (0.0-0.012) K/mm3 Nucleated RBC % (0.0-0.2) % PT (11.1-14.7) Seconds INR APTT (22.3-36.8) Seconds D-Dimer (<0.48) ug/mL Sodium (137-145) mmol/L Potassium (3.4-5.0) mmol/L Chloride (98-107) mmol/L Carbon Dioxide (22-30) mmol/L Anion Gap (4-12) mmol/L BUN (9-20) mg/dL Creatinine (0.7-1.3) mg/dL Estim Creat Clear Calc ml/min Estimated GFR (59 - ) Glucose (65-110) mg/dL Calcium (8.4-10.2) mg/dL Total Bilirubin (0.2-1.3) mg/dL Direct Bilirubin (0-0.3) mg/dL Indirect Bilirubin (0-1.1) mg/dL AST (17-59) U/L ALT (6-50) U/L Alkaline Phosphatase (38-126) U/L Troponin I (0.000-0.034) ng/mL Total Protein (6.3-8.2) g/dL Albumin (3.5-5.1) g/dL Lipase (23-300) U/L TSH (0.465-4.680) uIU/mL Free T4 (0.78-2.19) ng/dL Free T3 pg/mL Cancelled (2.32-6.09) pg/mL Urine Opiates Screen (Negative) Urine Methadone Screen (Negative) Ur Barbiturates Screen (Negative) Ur Phencyclidine Scrn (Negative) Ur Amphetamine Screen (Negative) U Benzodiazepines Scrn (Negative) Urine Cocaine Screen (Negative) U Cannabinoids Screen (Negative) Imaging Data Attestation: I personally reviewed and interpreted this imaging study as follows: My impression: No intrathoracic process on my interpretation of chest x-ray Radiologist's impression: Impressions Chest X-Ray 10/10/25 06:29 IMPRESSION: 1. No acute cardiopulmonary findings. ECG Data EKG #1: Attestation: I personally reviewed and interpreted this ECG as follows: ECG completion date: 10/10/25 ECG completion time: 02:07 Interpretation: Pre populated algorithm suggests that this is atrial tachycardia ectopic in nature however P-waves proceed all QRS complexes QRS complexes follow all P- waves thus this does appear otherwise represent a sinus rhythm, tachycardic due to the rate of 111. TN interval is 158. QRS 99. QT/QTC 330/449. Good R-wave progression across the precordial leads. No T-wave inversions. EKG #2: Attestation: I personally reviewed and interpreted this ECG as follows: ECG completion date: 10/10/25 ECG completion time: 05:02 Interpretation: Normal sinus rhythm at a rate of 68 beats per minute. There is R to R variation consistent with sinus arrhythmia likely due to respiratory variation, otherwise normal given patient's age. TN interval 168. QRS 98. QT/QTC 375/392. Good R- wave progression across the precordial leads. T-wave inversion in 3 but upright in contiguous inferior leads. No other T-wave inversion. There is asymmetry of the ST segment in V2-V4 with notching of J opint in II; These findings, especially in an otherwise healthy patient of age less than 50 years old suggest benign early repolarization, usually benign ECG pattern. Discharge Plan Discharge Clinical Impression: Normocytic anemia, JULIET (acute kidney injury), Racing heart beat, Elevated BP without diagnosis of hypertension, Subclinical hypothyroidism Patient Disposition: Home Condition: Stable Instructions: Antibiotic Form, Heart Palpitations (DC), Acute Kidney Injury (DC), How to Take a Blood Pressure Reading (ED), Subclinical Hypothyroidism (ED), Anemia (ED) Additional Instructions: Continue to keep a log of your blood pressure measurements at home. Given your heart palpitations, you may need to follow-up with a barrel reamer for an event/Holter monitor although this could be very likely due to your anemia. Continue to follow-up with your primary care team and all the labs and appointments related to your new anemia, including the upcoming hematology appointment. Patient Language: Croatian Prescriptions: No Action No Home Medications Follow-up/Referrals: Ge Veloz MD [Primary Care Provider, Family Practice] Meliton Larios MD [Physician, Cardiology] Estela Adrian PA-C [Physician Greeter Guest Services, [facility]] Lian Khan MD [Physician, Family Practice] Stand Alone Forms: Work/School Release IP Time of Disposition: 06:06
[2025-10-10] MEDS: SODIUM CHLORIDE 0.9% IV 1,000 ML 999 ML IV CONT (03:58)
[2025-10-10 04:03] VITALS: BP 130/59; PULSE 66; RESP 18; O2SAT 100
[2025-10-10 04:25] VITALS: BP 131/63; PULSE 78
[2025-10-10 04:27] LABS: Cannabinoid Screen Urine Negative (Negative)
[2025-10-10 04:33] LABS: Thyroid Stimulating Hormone 7.610 uIU/mL (0.465-4.680)
--- NOTE | 2025-10-10 04:41 | ECG_ITS ---
Test Date: 2025-10-10 05:02:51 Measurements Intervals [place] Rate: 68 P: 46 TX: 168 QRS: 56 QRSD: 98 T: 15 QT: 375 QTc: 400 Interpretive Statements SINUS RHYTHM WITH SINUS ARRHYTHMIA EARLY REPOLARIZATION Compared to ECG 10/10/2025 02:07:24 Early repolarization now present Electronically Signed On 10-10-2025 12:28:06 SEGMENT ASSEMBLER by Denver Vega M.D.
[2025-10-10 05:31] LABS: Troponin I 0.016 ng/mL (0.000-0.034)
--- NOTE | 2025-10-10 05:35 | PC.NURSE ---
pt tolerated sips of water ok
[2025-10-10 05:39] LABS: Free T3 4.10 pg/mL (2.32-6.09); Free T4 Free Thyroxine 1.21 ng/dL (0.78-2.19)
[2025-10-10 06:38] VITALS: BP 132/62; PULSE 102; RESP 16; O2SAT 100
== END 2025-10-10 06:39 | disposition home or self-care (01) ==
PROVIDERS: Emergency Provider Student in an Organized Health Care Education/Training Program; PCP Family Medicine
DX: D64.9 Anemia, unspecified (principal); N17.9 Acute kidney failure, unspecified; R00.0 Tachycardia, unspecified; R03.0 Elevated blood-pressure reading, without diagnosis of hypertension; E03.8 Other specified hypothyroidism
CPT/HCPCS: 36415; 71046; 80053; 80307; 82248; 83690; 84439; 84443; 84481; 84484; 85025; 85380; 85610; 85730; 93005; 96360; 99284; J7030

== ENCOUNTER 2025-10-14 12:59 | Outpatient (CLI) | payer BC, SELFPAY ==
[2025-10-14 13:30] LABS: Hematocrit 30.7 % (42.0-52.0); Hemoglobin 10.1 g/dL (14.0-18.0); Immature Granulocyte Percent A 0.8 % (0-0.5); Lymphocytes Absolute Auto 0.61 K/mm3 (0.9-3.2); Mean Corpuscular HGB Conc 32.9 g/dl (32-36); Mean Corpuscular Hemoglobin 32.7 pg (26-34); Mean Corpuscular Volume 99.4 fl (80-100); Nucleated Red Blood Cells Absolute Auto 0.000 K/mm3 (0.0-0.012); Nucleated Red Blood Cells Perc 0.0 % (0.0-0.2); Platelet Count Result 270 k/mm3 (150-375); Red Blood Count 3.09 M/mm3 (4.6-6.20); White Blood Count 3.6 K/mm3 (4.5-10.0)
[2025-10-14 14:02] LABS: Alanine Aminotransferase 25 U/L (6-50); Albumin Level 5.2 g/dL (3.5-5.1); Alkaline Phosphatase 71 U/L (38-126); Anion Gap 14 mmol/L (4-12); Aspartate Amino Transferase 36 U/L (17-59); Bilirubin,Total 2.2 mg/dL (0.2-1.3); Blood Urea Nitrogen 14 mg/dL (9-20); Calcium 9.6 mg/dL (8.4-10.2); Carbon Dioxide 23 mmol/L (22-30); Chloride 102 mmol/L (98-107); Estimated Glomerular Filt Rate > 60; Glucose 85 mg/dL (65-110); Potassium 3.8 mmol/L (3.4-5.0); Sodium 139 mmol/L (137-145); Total Protein 8.7 g/dL (6.3-8.2)
[2025-10-14 14:18] LABS: Free T4 Free Thyroxine 1.22 ng/dL (0.78-2.19)
[2025-10-14 14:34] LABS: Thyroid Stimulating Hormone 2.450 uIU/mL (0.465-4.680)
== END 2025-10-14 13:00 | disposition home or self-care (01) ==
LOC: ANHLAB 13:02
PROVIDERS: PCP Family Medicine; Visit Provider Student in an Organized Health Care Education/Training Program
DX: E03.9 Hypothyroidism, unspecified (principal); D58.9 Hereditary hemolytic anemia, unspecified; N17.9 Acute kidney failure, unspecified
CPT/HCPCS: 36415; 80053; 84439; 84443; 85025

== ENCOUNTER 2025-10-31 11:55 | Outpatient (CLI) | payer BC, SELFPAY ==
--- NOTE | 2025-10-31 | CONSULT_PTH ---
PATIENT: Raghu Gil LOC: [facility] U#:[id number] AGE/SX: 20/M ROOM: RE10/31/[address]: Eugene Yo MD : 2005 BED: DIS: 10/31/2025 SPEC #: [id number] RECD: 10/31/25 13:09 STATUS: HILARY REQ #: [id number] BRANDIN: 10/31/25 00:[address]: Eugene Yo DEPT: [facility] Consult RECD BY: Salina Evans MLT ENTERED: 10/31/25 13:11 SP TYPE: Consult OT DR: Ge Veloz MD Tissues: A - Peripheral Smear Procedures: Hematology Consult
--- NOTE | 2025-10-31 10:42 | CY_PTH ---
PATIENT: Raghu Gil LOC: [facility] U#:[id number] AGE/SX: 20/M ROOM: RE10/31/[address]: Eugene Yo MD : 2005 BED: DIS: 10/31/2025 SPEC #: [id number] RECD: 10/31/25 14:07 STATUS: HILARY REQ #: [id number] BRANDIN: 10/31/25 10:[address]: Eugene Yo DEPT: [facility] Cytology RECD BY: July Muñoz ENTERED: 10/31/25 14:10 SP TYPE: Cytology OTHR DR: Ge Veloz MD Tissues: A - Flow Procedures: Flow Cytometry
[2025-10-31 13:01] LABS: Hematocrit 35.7 % (42.0-52.0); Hemoglobin 12.0 g/dL (14.0-18.0); Immature Granulocyte Percent A 0.6 % (0-0.5); Immature Reticulocyte Fraction 29.8 % (3.0-15.9); Lymphocytes Absolute Auto 0.47 K/mm3 (0.9-3.2); Mean Corpuscular HGB Conc 33.6 g/dl (32-36); Mean Corpuscular Hemoglobin 33.5 pg (26-34); Mean Corpuscular Volume 99.7 fl (80-100); Nucleated Red Blood Cells Absolute Auto 0.000 K/mm3 (0.0-0.012); Nucleated Red Blood Cells Perc 0.0 % (0.0-0.2); Platelet Count Result 303 k/mm3 (150-375); Red Blood Count 3.58 M/mm3 (4.6-6.20); Reticulocyte Hemoglobin Conten 30.6 pg (28.2-36.6); Reticulocytes Absolute 0.33 10^6/uL (0.02-0.10); White Blood Count 3.4 K/mm3 (4.5-10.0)
[2025-10-31 13:11] LABS: Alanine Aminotransferase 32 U/L (6-50); Albumin Level 5.2 g/dL (3.5-5.1); Alkaline Phosphatase 72 U/L (38-126); Anion Gap 9 mmol/L (4-12); Aspartate Amino Transferase 37 U/L (17-59); Bilirubin,Total 2.4 mg/dL (0.2-1.3); Blood Urea Nitrogen 12 mg/dL (9-20); Calcium 10.1 mg/dL (8.4-10.2); Carbon Dioxide 26 mmol/L (22-30); Chloride 105 mmol/L (98-107); Estimated Glomerular Filt Rate > 60; Glucose 97 mg/dL (65-110); Potassium 4.9 mmol/L (3.4-5.0); Sodium 140 mmol/L (137-145); Total Protein 8.9 g/dL (6.3-8.2)
[2025-10-31 13:12] LABS: Iron 80 ug/dL (49-181)
[2025-10-31 13:24] LABS: Percent Iron Saturation 23 % (20-50)
[2025-10-31 13:53] LABS: Ferritin 303.00 ng/mL (17.9-464)
[2025-10-31 14:01] LABS: Vitamin B12 330.0 pg/mL (239-931)
[2025-11-02 15:08] LABS: G-6-PD, Quant 486 (156-397); RBC 3.73 x10E6/uL (4.14-5.80)
== END 2025-10-31 11:56 | disposition home or self-care (01) ==
LOC: ANHLAB 11:56
PROVIDERS: PCP Family Medicine; Visit Provider Internal Medicine Hematology & Oncology
DX: D59.9 Acquired hemolytic anemia, unspecified (principal); D64.9 Anemia, unspecified
CPT/HCPCS: 36415; 80053; 82607; 82728; 82746; 82955; 83010; 83540; 83550; 85025; 85046; 86880; 88184

== ENCOUNTER 2025-11-13 10:06 | Outpatient (CLI) | payer BC, SELFPAY ==
--- OUTSIDE RECORDS SUMMARY | 2024-10-10 11:30 | XMS_ITS ---
Author Organization [facility] [place] ([address]) Address [address] [place] [address] Care Team Providers Care Cull Grader Name Role Phone Dr. Lian Larson Primary Care Provider Un available Hazel Camejo Unavailable [phone] REASON FOR VISIT ARC follow-up Encounters Encounter Location Date Provider Diagnosis [facility] [address] [place] [address] 10/10/2024 Hazel Camejo Plan Of Treatment No Information Progress Notes * Raghu BETANCOURTDOB:2004 (20 yo M)Acc No.[id number]:10/10/2024 Progress Notes Patient: Raghu CAMARILLO Provider: NATHALIE Quintana :2005 A ge:19 Y S ex:Male Date:10/10/2024 Address:[address] [place], [place] [id number] Pcp:Dr. Lian Larson Subjective: * Chief Complaints: * 1 . ARC follow-up. * Medical History: Objective: * Vitals: Assessment: Plan: * Treatment: * Billing Information: * Visit Code: * Procedure Codes: * Electronic signature of NATHALIE Hernandez on 11/13/2025 at 11:43 AM COST SPECIALIST Sign off status: Pending * Provider: NATHALIE Quintana Date: 12/10/2023 Generated for Jasen Gonzalesg/Doyleitting on: 1 01/14/2025 11:43 AM COST SPECIALIST
--- NOTE | ~2025-11-13 | US_ITS ---
Examination: US abdomen complete Clinical History: chronic anemia . Comparison: None Technique: Complete abdominal sonography Findings: Liver: Enlarged. Normal echotexture. No intrahepatic biliary ductal dilatation. Normal hepatopedal flow main portal vein. Common duct: Normal caliber, 3 mm. Gallbladder: No stones. No wall thickening. No pericholecystic fluid. Spleen: Enlarged. A few small hypoechoic foci. Pancreas: Largely obscured by bowel gas. Kidneys: Unremarkable. Aorta: No aneurysmal dilatation. Retrohepatic IVC: Unremarkable. IMPRESSION: 1. Hepatosplenomegaly. 2. A few nonspecific splenic foci. Recommend CT or MRI abdomen with contrast. Reviewed, dictated and finalized at location R. [facility]ER ASSISTANT
--- OUTSIDE RECORDS SUMMARY | 2025-11-13 11:43 | XMS_ITS | Encounter Summary ---
Author Organization [facility] Appear [facility] Address [address] [place] [address] Care Team Providers Care Vinyl Hanger Name Role Phone Ge Veloz MD Primary Care Provider [phone] Encounter Details Date Type Department Care Team ([facility] Contact Info) Description 11/11/2025 Orders Only [facility] Oncology and Hematology [facility] [address] [place] [address] Eugene Yo MD [address] [facility] [address] [place] [address] Social History Tobacco Use Types Packs/Day Years Used Date Smoking Tobacco: Never Smokeless Tobacco: Never Alcohol Use Standard Drinks/Week Comments Yes 0 (1 standard drink = 0.6 oz pur e alcohol) Occasionally Sex and Gender Information Value Date Recorded Sex Assigned at Not on file Legal Sex Male 3:07 PM ESCROW OFFICER Gender Identity Not on file Sexual Orientation Not on file documented as of this encounter Plan of Treatment Upcoming Encounters Date Type Department Care Team (Late Contact Info) Description 11/19/2025 4:00 PM ESCROW OFFICER Telephone Check Up [facility] Oncology and Hematology [facility] [address] [place] [address] Lori Randall MD [address] [id number] documented as of this encounter Procedures Procedure Name Priority Date/Time Associated Diagnosis Comments METHYLMALONIC ACID Routine 10/31/2025 11:12 AM ESCROW OFFICER documented in this encounter Results * METHYLMALONIC ACID (10/31/2025 11:12 AM ESCROW OFFICER) Blood Eugene Yo MD CHEMISTRY ORDERABLES Final Resu lt documented in this encounter Visit Diagnoses Not on filedocumented in this encounter Care Teams Vinyl Hanger Relationship Specialty Start Date End Date Ge Veloz MD [address] [facility] [address] [place] [address] PCP - General Family Practice 10/29/25 documented as of this encounter
--- OUTSIDE RECORDS SUMMARY | 2025-11-13 11:43 | XMS_ITS | Clinical Summary ---
Author Organization [facility] Janina mccall [employer] Address [address] [facility] [address] Care Team Providers Care Breastfeeding Educator Name Role Phone Ge Veloz MD Primary Care Provider [phone] Allergies No known active allergies Medications fexofenadine (PERRI) 180 mg tablet Take 180 mg by mouth daily. Active fluticasone propion-salmete roL (ADVAIR DISKUS,WIXELA INHUB) 100-50 mcg/dose disk inhaler Take 1 Puff by inhalation 2 times daily. Active Active Problems No known active problems Encounters Date Type Department Care Team Description 11/12/2025 External Device Data STL ABSTRACTION Provider, Abstract 11/11/2025 Orders Only [facility] Oncology and Hematology - [facility] [address] [place] [address] Eugene Yo MD 11/05/2025 External Device Data STL ABSTRACTION Provider, Abstract 11/05/2025 External Device Data STL ABSTRACTION Provider, Abstract 11/05/2025 External Device Data STL ABSTRACTION Provider, Abstract 11/05/2025 Orders Only [facility] Oncology and Hematology - [place] [address] [place] [address] Eugene Yo MD 11/01/2025 Orders Only [facility] Oncology and Hematology - [facility] [address] [place] [address] Eugene Yo MD 10/31/2025 Abstract [facility] Oncology and Hematology - [place] [address] [place] [address] Eugene Yo MD 10/29/2025 10:30 AM DIRECTOR OF PROPERTY MANAGEMENT Office Visit [facility] Oncology and Hematology - [facility] [address] [place] [address] Eugene Yo MD Chronic anemia (Primary Dx); Acquired hemolytic anemia (CMS/HCC) from Last 3 Months Family History Medical History Relation Name Comments No Known Problems Father No Known Problems Mother No Known Problems Sister Relation Name Status Comments Father Alive Mother Alive Sister Alive Social History Tobacco Use Types Packs/Day Years Used Date Smoking Tobacco: Never Smokeless Tobacco: Never Tobacco Cessation:Counseling Given: Not Answered Alcohol Use Standard Drinks/Week Comments Yes 0 (1 standard drink = 0.6 oz pur e alcohol) Occasionally Sex and Gender Information Value Date Recorded Sex Assigned at Not on file Legal Sex Male 3:07 PM DIRECTOR OF PROPERTY MANAGEMENT Gender Identity Not on file Sexual Orientation Not on file Last Filed Vital Signs Vital Sign Reading Time Taken Comments Blood Pressure 159/83 10/29/2025 10:35 AM DIRECTOR OF PROPERTY MANAGEMENT Pulse 86 10/29/2025 10:25 AM DIRECTOR OF PROPERTY MANAGEMENT Temperature 37.2 C (99 F) 10/29/2025 10:25 AM DIRECTOR OF PROPERTY MANAGEMENT Respiratory Rate 15 10/29/2025 10:25 AM DIRECTOR OF PROPERTY MANAGEMENT Oxygen Saturation 99% 10/29/2025 10:25 AM DIRECTOR OF PROPERTY MANAGEMENT Inhaled Oxygen Concentration - - Weight 71.5 kg (157 lb 9.6 oz) 10/29/2025 10:25 AM DIRECTOR OF PROPERTY MANAGEMENT Height 165.1 cm (5' 5) 10/29/2025 10:25 AM DIRECTOR OF PROPERTY MANAGEMENT Body Mass Index 26.23 10/29/2025 10:25 AM DIRECTOR OF PROPERTY MANAGEMENT Plan of Treatment Upcoming Encounters Date Type Department Care Team (Late st Contact Info) Description 11/19/2025 4:00 PM DIRECTOR OF PROPERTY MANAGEMENT Telephone Check Up [facility] Oncology and Hematology - [facility] [address] [place] [address] Lori Randall MD [address] [place] [address] Health Maintenance Due Date Last Done Comments HPV VACCINES (1 - Male 3-dose series) 2018 DTAP/TDAP/TD VACCINES (1 - Tdap) 2022 HEPATITIS B VACCINES (1 of 3 - 19+ 3-dose series) 05/28 INFLUENZA VACCINE (#1) 2025 Procedures Procedure Name Priority Date/Time Associated Diagnosis Comments FLOW CYTOMETRY REPORT Routine 10/31/2025 1:42 PM DIRECTOR OF PROPERTY MANAGEMENT HAPTOGLOBIN Routine 10/31/2025 12:35 PM DIRECTOR OF PROPERTY MANAGEMENT VITAMIN B12 LEVEL Routine 10/31/2025 12: 33 PM DIRECTOR OF PROPERTY MANAGEMENT COMPREHENSIVE METABOLIC PANEL Routine 10/31/2025 12:28 PM DIRECTOR OF PROPERTY MANAGEMENT METHYLMALONIC ACID Routine 10/31/2025 11 :12 AM DIRECTOR OF PROPERTY MANAGEMENT PERIPHERAL BLOOD SMEAR EVAL Routine 10/31/2025 9:28 AM DIRECTOR OF PROPERTY MANAGEMENT from Last 3 Months Results * FLOW CYTOMETRY REPORT (10/31/2025 1:42 PM DIRECTOR OF PROPERTY MANAGEMENT) us Eugene Yo MD PATHOLOGY/CYTOLOGY ORDERABLES F inal Result * HAPTOGLOBIN (10/31/2025 12:35 PM DIRECTOR OF PROPERTY MANAGEMENT) Blood us Eugene Yo MD CHEMISTRY ORDERABLES Final Resu lt * VITAMIN B12 LEVEL (10/31/2025 12:33 PM DIRECTOR OF PROPERTY MANAGEMENT) Blood us Eugene Yo MD CHEMISTRY ORDERABLES Final Resu lt * COMPREHENSIVE METABOLIC PANEL (10/31/2025 12:28 PM DIRECTOR OF PROPERTY MANAGEMENT) Blood us Eugene Yo MD CHEMISTRY ORDERABLES Final Resu lt * METHYLMALONIC ACID (10/31/2025 11:12 AM DIRECTOR OF PROPERTY MANAGEMENT) Blood us Eugene Yo MD CHEMISTRY ORDERABLES Final Resu lt * PERIPHERAL BLOOD SMEAR EVAL (10/31/2025 9:28 AM DIRECTOR OF PROPERTY MANAGEMENT) Blood us Eugene Yo MD HEMATOLOGY ORDERABLES Final Res ult from Last 3 Months Insurance [facility] Care Teams Breastfeeding Educator Relationship Specialty Start Date End Date Ge Veloz MD [address] [facility] [address] [place] [address] PCP - General Family Practice 10/29/25
--- OUTSIDE RECORDS SUMMARY | 2025-11-13 11:43 | XMS_ITS | Clinical Summary ---
Author Organization [facility] Care Team Providers Care Finishing And Shipping Supervisor Name Role Phone Unavailable Primary Care Provider Unavailabl e Social History Tobacco Use Types Packs/Day Years Used Date Smoking Tobacco: Never Assessed Sex and Gender Information Value Date Recorded Sex Assigned at Not on file Legal Sex Male 11:22 AM RANCH HAND LIVESTOCK Gender Identity Not on file Sexual Orientation [...]
--- OUTSIDE RECORDS SUMMARY | 2025-11-13 11:43 | XMS_ITS | Patient Health Record ---
Author Organization [facility] ([address]) Address [address] [place] [address] Care Team Providers Care Hog Ringer Name Role Phone Dr. Lian Larson Primary Care Provider Un available Hazel Camejo Unavailable [phone] Allergies No Known Allergies Reason For Referral [...] Status Risk Notes Problem Chronic allergic conjunctivitis (37678272) Other chronic allergic conjunctivitis (H10.45) Active confirmed Problem Allergic rhinitis caused by pollen (disorder) (27408250) Allergic rhinitis due to pollen (J30.1) Active confirmed Problem Allergic rhinitis caused by animal hair and dander (920535051021917) Allergic rhinitis due to animal (cat) (dog) hair and dander (J30.81) Active confirmed Problem Allergic rhinitis (74642152) Other allergic rhinitis (J30.89) Active confirmed Problem Chronic rhinitis (11002210) Chronic rhinitis (J31.0) Active confirmed Problem Hypertrophy of nasal turbinates (86108058) Hypertrophy of nasal turbinates (J34.3) Active confirmed Plan Of Treatment No Information Insurance Providers Payer Name Payer Address Payer Phone Subscriber Number Group Number Insured Name Patient Relationship to Insured Coverage Start Date Coverage End Date [facility] [address] [place] [address] [id number] Karin Nguyen Child - Insured has Financial Responsibility 5 Medical (General) History Medical History History ICD Code Allergic rhinitis Surgical History Surgery Date(Month/Year) tubes in ears unknown
--- OUTSIDE RECORDS SUMMARY | 2025-11-13 11:43 | XMS_ITS | Encounter Summary ---
Author Organization [facility] Address [address] [place] [address] Care Team Providers Care Regional Property Manager Name Role Phone Ge Veloz MD Primary Care Provider [phone] Encounter Details Date Type Department Care Team (Late st Contact Info) Description 11/12/2025 External Device Data [facility] ABSTRACTION Provider, Abstract NO ADDRESS ON FILE Social History Tobacco Use Types Packs/Day Years Used Date Smoking Tobacco: Never Smokeless Tobacco: Never Alcohol Use Standard Drinks/Week Comments Yes 0 (1 standard drink = 0.6 oz pur e alcohol) Occasionally Sex and Gender Information Value Date Recorded Sex Assigned at Not on file Legal Sex Male 3:07 PM [employer] Gender Identity Not on file Sexual Orientation Not on file documented as of this encounter Plan of Treatment Upcoming Encounters Date Type Department Care Team (Late st Contact Info) Description 11/19/2025 4:00 PM [employer] WORK[employer] Telephone Check Up [facility] Oncology and Hematology - [place] [address] [place] [id number] Lori Randall MD [address] [phone] documented as of this encounter Visit Diagnoses Not on filedocumented in this encounter Care Teams Regional Property Manager Relationship Specialty Start Date End Date Ge Veloz MD [address] [facility] [address] [place] [address] PCP - General Family Practice 10/29/25 documented as of this encounter
== END 2025-11-13 10:07 | disposition home or self-care (01) ==
PROVIDERS: PCP Family Medicine; Visit Provider Internal Medicine Hematology & Oncology
DX: D64.9 Anemia, unspecified (principal); R16.0 Hepatomegaly, not elsewhere classified
CPT/HCPCS: 76700